=== PATIENT | male | born 1965 | race Caucasian/White ===

== ENCOUNTER → 2023-06-24 | Outpatient (CLI) | payer BC ==
--- NOTE | 2023-06-24 18:58 | XR ---
EXAMINATION TYPE: XR hand complete 3 views LT DATE OF EXAM: 06/24/2023 Comparison: None Clinical History: 57-year-old male with pain, [id number] LT HAND GOUT Findings: There is a focus of calcification measuring 8 mm along the radial palmar aspect of the second DIP reanna nt. Additional vague calcifications along the palmar aspect of the aerated DIP joint. No discrete jux ta-articular erosions are seen. There is mild to moderate degenerative joint space narrowing in the s econd and third MCP joints. No acute fracture, subluxation, dislocation seen. Impression: 1. Calcific deposit within the soft tissues at the second and third fingers at the level of the DIP j oints could represent gouty tophi. No specific findings of gouty arthropathy at this time. 2. Some degenerative joint space narrowing at the second and third MCP joints.
== END | disposition home or self-care (01) ==
LOC: RADXRYALE 15:50
PROVIDERS: ATTEND Internal Medicine
DX: M10.042 Idiopathic gout, left hand (principal); M79.89 Other specified soft tissue disorders; M19.042 Primary osteoarthritis, left hand